=== PATIENT | male | born 1985 | race Two or more races ===

== ENCOUNTER 2018-12-26 14:10 | Emergency (ER) | payer SELFPAY ==
--- NOTE | 2018-12-26 14:23 | EDM.PDOC ---
ED HPI GENERAL MEDICAL PROBLEM - General Chief Complaint: General Stated Complaint: WOKE UP W/ PAIN IN NECK AND HEAD Time Seen by Provider: 12/26/18 14:21 Source of Information: Reports: Patient History Limitations: Reports: No Limitations - History of Present Illness INITIAL COMMENTS - FREE TEXT/NARRATIVE: History of present illness: []Patient has had a headache, neck pain, numbness and tingling in his arms and nausea since yesterday. Pain was a 9/10 yesterday but is a 5/10 today. He denies any visual changes, walking or difficulty with speech. Review of systems: As per history of present illness and below otherwise all systems reviewed and negative. Past medical history: As per history of present illness and as reviewed below otherwise noncontributory. Surgical history: As per history of present illness and as reviewed below otherwise noncontributory. Social history: No reported history of drug or alcohol abuse. Family history: As per history of present illness and as reviewed below otherwise noncontributory. Physical exam: General: Well developed, well nourished in NAD HEENT: Atraumatic, normocephalic, pupils reactive, negative for conjunctival pallor or scleral icterus, mucous membranes moist, throat clear, neck supple, No rigidity, nontender, trachea midline. TMs clear, no stridor Lungs: Clear to auscultation, breath sounds equal bilaterally, chest nontender. Clear no wheezing, rhonchi or rales Heart: S1S2, regular, negative for clicks, rubs, or JVD. Abdomen: NABS, Soft, nondistended, nontender. Negative for masses or hepatosplenomegaly. Negative for costovertebral tenderness. Pelvis: Stable nontender. Genitourinary: Deferred. Rectal: Deferred. Extremities: Atraumatic, negative for cords or calf pain. Neurovascular unremarkable. Neuro: Awake, alert, oriented. Cranial nerves II through XII unremarkable. Cerebellum unremarkable. Motor and sensory unremarkable throughout. Equal lawyers Exam nonfocal. Skin:warm and dry Diagnostics: BC, chemistry Therapeutics: Declined pain meds ED Course: stable Impression: Medical screening exam, cephalgia Prescriptions: None Plan: Take meds as directed, follow up with your primary care physician, return to ER if symptoms worsen or change. Definitive disposition and diagnosis as appropriate pending reevaluation and review of above. Generalized Pain Score (Numeric/FACES): 0 - Related Data Allergies Allergy/AdvReac Type Severity Reaction Status Date / Time No Known Allergies Allergy Verified 12/26/18 14:20 Home Meds: Home Meds . [No Known Home Meds] 05/09/18 [History] Past Medical History - Past Health History Medical/Surgical History: Denies Medical/Surgical History Social & Family History - Family History Family Medical History: Noncontributory ED ROS GENERAL - Review of Systems Review Of Systems: See Below ED EXAM, GENERAL - Physical Exam Exam: See Below Course - Vital Signs Last Recorded V/S: Last Vital Signs Temp 98.2 F 12/26/18 14:18 Pulse 109 H 12/26/18 14:18 Resp 18 12/26/18 14:18 BP 131/87 12/26/18 14:18 Pulse Ox 96 12/26/18 14:18 - Orders/Labs/Meds Labs: Laboratory Tests 12/26/18 12/26/18 Range/Units 14:47 14:47 WBC 8.19 (4.0-11.0) K/uL RBC 5.11 (4.50-5.90) M/uL Hgb 14.3 (13.0-17.0) g/dL Hct 42.9 (38.0-50.0) % MCV 84.0 (80.0-98.0) fL MCH 28.0 (27.0-32.0) pg MCHC 33.3 (31.0-37.0) g/dL RDW Std Deviation 44.1 (28.0-62.0) fl RDW Coeff of Fernandez 14 (11.0-15.0) % Plt Count 226 (150-400) K/uL MPV 11.10 (7.40-12.00) fL Neut % (Auto) 70.5 (48.0-80.0) % Lymph % (Auto) 23.2 (16.0-40.0) % Sevier % (Auto) 4.9 (0.0-15.0) % Eos % (Auto) 1.2 (0.0-7.0) % Baso % (Auto) 0.2 (0.0-1.5) % Neut # (Auto) 5.8 H (1.4-5.7) K/uL Lymph # (Auto) 1.9 (0.6-2.4) K/uL Sevier # (Auto) 0.4 (0.0-0.8) K/uL Eos # (Auto) 0.1 (0.0-0.7) K/uL Baso # (Auto) 0.0 (0.0-0.1) K/uL Nucleated RBC % 0.0 /100WBC Nucleated RBCs # 0 K/uL Sodium 139 (136-148) mmol/L Potassium 3.7 (3.5-5.1) mmol/L Chloride 103 (98-107) mmol/L Carbon Dioxide 23.0 (21.0-32.0) mmol/L BUN 15 (7.0-18.0) mg/dL Creatinine 0.7 L (0.8-1.3) mg/dL Est Cr Clr Drug Dosing 146.57 mL/min Estimated GFR (MDRD) > 60.0 ml/min Glucose 99 (74-106) mg/dL Calcium 8.8 (8.5-10.1) mg/dL Total Bilirubin 0.2 (0.2-1.0) mg/dL AST 21 (15-37) IU/L ALT 44 (14-63) IU/L Alkaline Phosphatase 99 (46-116) U/L Total Protein 7.8 (6.4-8.2) g/dL Albumin 3.7 (3.4-5.0) g/dL Globulin 4.1 H (2.6-4.0) g/dL Albumin/Globulin Ratio 0.9 (0.9-1.6) Meds: Medications Discontinued Medications Generic Name Dose Route Start Last Admin Trade Name Freq PRN Reason Stop Dose Admin Ibuprofen 800 mg 12/26/18 14:33 12/26/18 14:42 Motrin PO 12/26/18 14:34 800 mg ONETIME ONE Administration Departure - Departure Time of Disposition: 15:53 Disposition: Home, Self-Care 01 Condition: Good Clinical Impression: Encounter for medical screening examination - Discharge Information *PRESCRIPTION DRUG MONITORING PROGRAM REVIEWED*: No *COPY OF PRESCRIPTION DRUG MONITORING REPORT IN PATIENT SEA: No Referrals: PCP,None [Primary Care Provider] - Forms: ED Department Discharge Additional Instructions: The following information is given to patients seen in the emergency department who are being discharged to home. This information is to outline your options for follow-up care. We provide all patients seen in our emergency department with a follow-up referral. The need for follow-up, as well as the timing and circumstances, are variable depending upon the specifics of your emergency department visit. If you don't have a primary care physician on staff, we will provide you with a referral. We always advise you to contact your personal physician following an emergency department visit to inform them of the circumstance of the visit and for follow-up with them and/or the need for any referrals to a consulting specialist. The emergency department will also refer you to a specialist when appropriate. This referral assures that you have the opportunity for follow-up care with a specialist. All of these measure are taken in an effort to provide you with optimal care, which includes your follow-up. Under all circumstances we always encourage you to contact your private physician who remains a resource for coordinating your care. When calling for follow-up care, please make the office aware that this follow-up is from your recent emergency room visit. If for any reason you are refused follow-up, please contact the [facility] Emergency Department at and asked to speak to the emergency department charge nurse. Take meds as directed, follow up with your primary care physician, return to ER if symptoms worsen or change. [facility] [address] [place] [id number]
[2018-12-26] MEDS ORDERED: Ibuprofen 800 MG Tab PO ONE (14:33)
[2018-12-26 15:42] LABS: BLOOD UREA NITROGEN,BUN 15 mg/dL (7.0-18.0); CHLORIDE,CL 103 mmol/L (98-107); GLUCOSE RANDOM 99 mg/dL (74-106); POTASSIUM,K 3.7 mmol/L (3.5-5.1); SODIUM,NA 139 mmol/L (136-148)
== END 2018-12-26 16:07 | disposition home or self-care (01) ==
LOC: MW.ED 14:10
DX: R51 Headache (principal)
CPT/HCPCS: 36415; 80053; 85025; 99283; A9270; 99282

== ENCOUNTER 2019-04-25 14:35 | Emergency (ER) | payer SELFPAY ==
[2019-04-25] MEDS ORDERED: Ketorolac 60 MG/2 ML SDV IM ONE (14:50)
[2019-04-25] MEDS ORDERED: methylPREDNISolone Sodium Succinate 125 MG/2 ML SDV IM ONE (14:53)
--- NOTE | 2019-04-25 15:01 | EDM.PDOC ---
ED HPI GENERAL MEDICAL PROBLEM - General Chief Complaint: Headache Stated Complaint: HEADACHE Time Seen by Provider: 04/25/19 14:37 Source of Information: Reports: Patient History Limitations: Reports: No Limitations - History of Present Illness INITIAL COMMENTS - FREE TEXT/NARRATIVE: HISTORY AND PHYSICAL: History of present illness: Patient is a 34-year-old male who presents to the emergency room with complaints of headache, anxiety and sensation of throat swelling. Patient states over the past 24 hours he has had the sensation that his throat is swelling with mild throat discomfort. He denies any difficulty breathing, eating /swallowing or talking. He states that the sensation is causing him to have some anxiety which he believes has been causing him to have a generalized headache. He states he has been taking ibuprofen routinely which has improved some of his symptoms. Patient denies any fever, chills, headache, change in vision, syncope or near syncope. Denies any chest pain, back pain, shortness of breath or cough. Denies any abdominal pain, nausea, vomiting, diarrhea, constipation or dysuria. Has not noted any blood in urine or stool. Patient has been eating and drinking appropriately. Review of systems: As per history of present illness and below otherwise all systems reviewed and negative. Past medical history: As per history of present illness and as reviewed below otherwise noncontributory. Surgical history: As per history of present illness and as reviewed below otherwise noncontributory. Social history: See social history for further information Family history: As per history of present illness and as reviewed below otherwise noncontributory. Physical exam: General: Well-developed and well-nourished 34-year-old male. Alert and oriented. Nontoxic appearing and in no acute distress. HEENT: Atraumatic, normocephalic, pupils equal and reactive bilaterally, negative for conjunctival pallor or scleral icterus, mucous membranes moist, TMs normal bilaterally, throat mildly erythematous with +1 tonsils bilaterally ( no pillar shifting), neck supple, nontender, trachea midline. No drooling or trismus noted. No meningeal signs. No hot potato voice noted. Lungs: Clear to auscultation, breath sounds equal bilaterally, chest nontender. Heart: S1S2, regular rate and rhythm without overt murmur Abdomen: Soft, obese, nontender. Negative for masses or hepatosplenomegaly. Negative for costovertebral tenderness. Pelvis: Stable nontender. Skin: Intact, warm, dry. No lesions or rashes noted. Extremities: Atraumatic, moves all extremities per self without difficulty or deficits, negative for cords or calf pain. Neurovascular unremarkable. Neuro: Awake, alert, oriented. Cranial nerves II through XII unremarkable. Cerebellum unremarkable. Motor and sensory unremarkable throughout. Exam nonfocal. Notes: Soft tissue neck shows . Enlargement of the pharyngeal tonsils and adenoids. Mild thickening of the epiglottis. Will do CT neck. Moderate symmetric tonsillar enlargement is present bilaterally, collecting in the midline. Multiple small calcific tonsilliths are noted bilaterally. Bilateral jugular adenopathy seen in levels 2A and 2B with lymph nodes measuring up to 1.5 cm. Vital signs remain stable. Diagnostics were shared with the patient. I did encourage him to call ear nose and throat on Saturday for follow-up and reevaluation. We discussed signs and symptoms that would prompt him to return to the emergency room. Supportive care measures were reviewed and discussed. Voices understanding and is agreeable to plan of care. Denies any further questions or concerns at this time. Diagnostics: Soft tissue neck, Strep Therapeutics: Solu-Medrol, Toradol Prescription: Medrol Dosepak Augmentin Impression: Tonsillitis Plan: 1. Please use Tylenol and/or Ibuprofen as needed for pain and fever management. 2. Get plenty of Rest. Encourage fluids to prevent dehydration. 3. Please follow up with your primary care provider. Please follow up with ENT, call Saturday to set up an appointment. 4. Return to the ED as needed as discussed. Definitive disposition and diagnosis as appropriate pending reevaluation and review of above. Headache Pain Score (Numeric/FACES): 8 - Related Data Allergies Allergy/AdvReac Type Severity Reaction Status Date / Time No Known Allergies Allergy Verified 04/25/19 14:47 Home Meds: Home Meds . [No Known Home Meds] 05/09/18 [History] Past Medical History - Past Health History Medical/Surgical History: Denies Medical/Surgical History Respiratory History: Reports: Sleep Apnea - Infectious Disease History Infectious Disease History: Reports: Chicken Pox Social & Family History - Family History Family Medical History: Noncontributory - Tobacco Use Smoking Status *Q: Never Smoker - Recreational Drug Use Recreational Drug Use: No ED ROS GENERAL - Review of Systems Review Of Systems: Comprehensive ROS is negative, except as noted in HPI. - Physical Exam Exam: See Below (See dictation) Course - Vital Signs Last Recorded V/S: Last Vital Signs Temp 97.0 F 04/25/19 14:43 Pulse 81 04/25/19 14:43 Resp 18 04/25/19 14:43 BP 145/82 H 04/25/19 14:43 Pulse Ox 98 04/25/19 14:43 - Orders/Labs/Meds Orders: Active Orders 24 hr Category Date Time Status CULTURE STREP A CONFIRMATION [RM] Stat Lab 04/25/19 15:05 Results STREP SCRN A RAPID W CULT CONF [RM] Stat Lab 04/25/19 15:05 Results Labs: Laboratory Tests 04/25/19 04/25/19 Range/Units 16:00 16:00 WBC 10.36 (4.0-11.0) K/uL RBC 5.23 (4.50-5.90) M/uL Hgb 14.9 (13.0-17.0) g/dL Hct 45.4 (38.0-50.0) % MCV 86.8 (80.0-98.0) fL MCH 28.5 (27.0-32.0) pg MCHC 32.8 (31.0-37.0) g/dL RDW Std Deviation 46.7 (28.0-62.0) fl RDW Coeff of Fernandez 15 (11.0-15.0) % Plt Count 262 (150-400) K/uL MPV 11.30 (7.40-12.00) fL Neut % (Auto) 72.4 (48.0-80.0) % Lymph % (Auto) 21.3 (16.0-40.0) % Centre % (Auto) 5.2 (0.0-15.0) % Eos % (Auto) 0.9 (0.0-7.0) % Baso % (Auto) 0.2 (0.0-1.5) % Neut # (Auto) 7.5 H (1.4-5.7) K/uL Lymph # (Auto) 2.2 (0.6-2.4) K/uL Centre # (Auto) 0.5 (0.0-0.8) K/uL Eos # (Auto) 0.1 (0.0-0.7) K/uL Baso # (Auto) 0.0 (0.0-0.1) K/uL Nucleated RBC % 0.0 /100WBC Nucleated RBCs # 0 K/uL Sodium 142 (136-148) mmol/L Potassium 3.9 (3.5-5.1) mmol/L Chloride 104 (98-107) mmol/L Carbon Dioxide 30.2 (21.0-32.0) mmol/L BUN 13 (7.0-18.0) mg/dL Creatinine 0.9 (0.8-1.3) mg/dL Est Cr Clr Drug Dosing 112.94 mL/min Estimated GFR (MDRD) > 60.0 ml/min Glucose 88 (74-106) mg/dL Calcium 8.7 (8.5-10.1) mg/dL Total Bilirubin 0.3 (0.2-1.0) mg/dL AST 14 L (15-37) IU/L ALT 39 (14-63) IU/L Alkaline Phosphatase 92 (46-116) U/L Total Protein 8.4 H (6.4-8.2) g/dL Albumin 3.9 (3.4-5.0) g/dL Globulin 4.5 H (2.6-4.0) g/dL Albumin/Globulin Ratio 0.9 (0.9-1.6) Meds: Medications Discontinued Medications Generic Name Dose Route Start Last Admin Trade Name Freq PRN Reason Stop Dose Admin Iopamidol 80 ml 04/25/19 17:37 04/25/19 17:38 Isovue-370 (76%) IVPUSH 04/25/19 17:38 80 ml ONETIME STA Administration Ketorolac Tromethamine 60 mg 04/25/19 14:50 04/25/19 15:05 Toradol IM 04/25/19 14:51 60 mg ONETIME ONE Administration Methylprednisolone Sodium Succinate 125 mg 04/25/19 14:53 04/25/19 15:04 Solu-Medrol IM 04/25/19 14:54 125 mg ONETIME ONE Administration Departure - Departure Time of Disposition: 18:05 Disposition: Home, Self-Care 01 Clinical Impression: Acute tonsillitis Qualifiers: Pharyngitis/tonsillitis etiology: unspecified etiology Qualified Code(s): J03.90 - Acute tonsillitis, unspecified - Discharge Information Instructions: Tonsillitis, [id number] Referrals: PCP,None [Primary Care Provider] - Forms: ED Department Discharge Additional Instructions: The following information is given to patients seen in the emergency department who are being discharged to home. This information is to outline your options for follow-up care. We provide all patients seen in our emergency department with a follow-up referral. The need for follow-up, as well as the timing and circumstances, are variable depending upon the specifics of your emergency department visit. If you don't have a primary care physician on staff, we will provide you with a referral. We always advise you to contact your personal physician following an emergency department visit to inform them of the circumstance of the visit and for follow-up with them and/or the need for any referrals to a consulting specialist. The emergency department will also refer you to a specialist when appropriate. This referral assures that you have the opportunity for follow-up care with a specialist. All of these measure are taken in an effort to provide you with optimal care, which includes your follow-up. Under all circumstances we always encourage you to contact your private physician who remains a resource for coordinating your care. When calling for follow-up care, please make the office aware that this follow-up is from your recent emergency room visit. If for any reason you are refused follow-up, please contact the [facility] Emergency Department at and asked to speak to the emergency department charge nurse. [facility] [address] [place] [id number] [facility] [address] [place] [id number] ENT Specialist in [facility] [address] [phone] 1. Please use Tylenol and/or Ibuprofen as needed for pain and fever management. 2. Get plenty of Rest. Encourage fluids to prevent dehydration. 3. Please follow up with your primary care provider. Please follow up with ENT, call Saturday to set up an appointment. 4. Return to the ED as needed as discussed. - My Orders Last 24 Hours: My Active Orders 04/25/19 15:05 CULTURE STREP A CONFIRMATION [RM] Stat STREP SCRN A RAPID W CULT CONF [RM] Stat - Assessment/Plan Last 24 Hours: My Active Orders 04/25/19 15:05 CULTURE STREP A CONFIRMATION [RM] Stat STREP SCRN A RAPID W CULT CONF [RM] Stat
--- NOTE | 2019-04-25 15:50 | CR ---
HISTORY: Swelling. TECHNIQUE: Two views of the soft tissues of the neck. COMPARISON: No prior. FINDINGS: Enlargement of the adenoids and the pharyngeal tonsils. The epiglottis appears mildly thickened as well. There is no radiopaque foreign body. No fracture of the upper cervical spine. IMPRESSION: 1. Enlargement of the pharyngeal tonsils and adenoids. 2. Mild thickening of the epiglottis. Dictated by Wayne Bill MD @ 04/25/2019 3:47:25 PM Dictated by: Wayne Bill MD @ 04/25/2019 15:47:34 (Electronically Signed)
[2019-04-25 16:31] LABS: BLOOD UREA NITROGEN,BUN 13 mg/dL (7.0-18.0); CARBON DIOXIDE,CO2 30.2 mmol/L (21.0-32.0); CHLORIDE,CL 104 mmol/L (98-107); GLUCOSE RANDOM 88 mg/dL (74-106); POTASSIUM,K 3.9 mmol/L (3.5-5.1); SODIUM,NA 142 mmol/L (136-148)
[2019-04-25] MEDS ORDERED: Iopamidol 755 Mg/ML 100 ML Bottle IVPUSH STA (17:37)
--- NOTE | 2019-04-25 18:01 | CT ---
INDICATION: Swollen neck and shortness of breath TECHNIQUE: CT neck soft tissue with i.v. contrast. Coronal and sagittal reformats were obtained. CONTRAST: 80 mL Isovue 370 COMPARISON: None FINDINGS: Moderate degradation of image quality noted due to body habitus. Skull base: Unremarkable. Portions of the oral cavity and mandible are obscured by streak artifacts from the patient`s dental amalgams. Pharynx: No retropharyngeal fluid collections are identified. No CT evidence of tonsillar or peritonsillar abscess seen. Moderate adenoidal hypertrophy in the posterior nasopharynx is seen. Moderate symmetric tonsillar enlargement is present bilaterally, collecting in the midline. Multiple small calcific tonsilliths are noted bilaterally. The epiglottis is normal in appearance. Larynx and airway: Unremarkable. Salivary: Unremarkable. Thyroid: Unremarkable. Vascular: Unremarkable for age. Lymph: Sub centimeter lymph nodes are present in the submandibular and submental regions measuring about a mm. Bilateral jugular adenopathy seen in levels 2A and 2B with lymph nodes measuring up to 1.5 cm. Bone: Mild kyphosis of the mid cervical spine is seen. Disc: The disc spaces are unremarkable in appearance. The facet joints are unremarkable. Soft tissue: The prevertebral soft tissues are unremarkable in appearance. Lung: The visualized lung apices and mediastinum are unremarkable. IMPRESSIONS: 1. Moderate symmetric tonsillar enlargement is present bilaterally, collecting in the midline. Multiple small calcific tonsilliths are noted bilaterally. 2. Bilateral jugular adenopathy seen in levels 2A and 2B with lymph nodes measuring up to 1.5 cm. Dictated by Sixto Najera MD @ 04/25/2019 5:58:29 PM Please note that all CT scans at this facility use dose modulation, iterative reconstruction, and/or weight-based dosing when appropriate to reduce radiation dose to as low as reasonably achievable. Dictated by: Sixto Najera MD @ 04/25/2019 17:59:00 (Electronically Signed)
== END 2019-04-25 18:15 | disposition home or self-care (01) ==
LOC: MW.ED 14:35
DX: J03.90 Acute tonsillitis, unspecified (principal)
CPT/HCPCS: 36415; 70360; 70491; 80053; 85025; 87081; 87880; 96372; 99284; J1885; J2930; Q9967